=== PATIENT | male | born 1985 | race Caucasian/White ===

== ENCOUNTER 2016-12-12 23:48 | Emergency (ER) | payer OTHER ==
[~2016-12-12 23:48] MED LIST: BENADRYL25 MG PO; FLEXERIL PO; IBUPROFEN PO; LORTAB 10-5001 EACH PO; MOBIC15 MG PO; NO MEDICATIONS; NORFLEX100 M1 PO; PHENERGAN PO; PREDNISONE PO; PREDNISONE10 MG/DOSE PO; VALIUM10 MG; VISTARIL PO; VOLTAREN50 MG PO
[2016-12-13] MEDS ORDERED: DICLOXAXILLIN250 MG PO (00:23)
[2016-12-13] MEDS ORDERED: BACTRIM DS TABL1 TA1 PO (00:25)
[2016-12-13] MEDS ORDERED: IBUPROFEN800 MG PO (00:26)
== END 2016-12-13 00:32 | disposition home or self-care (01) ==
LOC: SED 23:48
DX: L03.115 Cellulitis of right lower limb (principal)
CPT/HCPCS: 99282